=== PATIENT | female | born 1990 | race Caucasian/White ===

== ENCOUNTER 2018-12-23 12:09 | Emergency (ER) | payer BC, OTHER ==
[2018-12-23 12:26] VITALS: BP 131/83
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
[2018-12-23] MEDS ORDERED: Acetaminophen/HYDROcodone 325-5 MG Tab PO ONE (13:35)
--- NOTE | 2018-12-24 08:46 | CT ---
CT cervical spine Technique: Multiple axial sections were obtained from above C1 inferiorly to the bottom of T2. Reconstructed sagittal and coronal images were obtained. Comparison: No prior cervical spine imaging is available. Findings: Vertebral body heights and disc spaces are maintained. No bony central or bony neural foraminal stenosis is seen. Very slight degenerative change is seen within the apophyseal joint at T1-T2 on the right side. No other degenerative change is seen. No fracture or subluxation is seen. No bony central or bony neural foraminal stenosis is seen. Impression: 1. Minimal degenerative change. 2. Nothing acute is appreciated on CT study of the cervical spine. Diagnostic code #2 I agree with preliminary report from [facility], finalized on 12/23/18, 2:33 PM Central Time
== END 2018-12-23 13:54 | disposition home or self-care (01) ==
LOC: JD.ED 12:09
DX: S16.1XXA Strain of muscle, fascia and tendon at neck level, initial encounter (principal); V49.60XA Unspecified car occupant injured in collision with unspecified motor vehicles in traffic accident, initial encounter
CPT/HCPCS: 72125; 99284; A9270; 99283

== ENCOUNTER 2020-08-02 08:23 | Emergency (ER) | payer MEDICAID ==
--- NOTE | 2020-08-02 08:51 | EDM.PDOC ---
ED HPI GENERAL MEDICAL PROBLEM - General Chief Complaint: Skin Complaint Stated Complaint: SPIDER BITE Time Seen by Provider: 08/02/20 08:35 Source of Information: Reports: Patient History Limitations: Reports: No Limitations - History of Present Illness INITIAL COMMENTS - FREE TEXT/NARRATIVE: The patient presents with a lesion to her right hip. She says this has been there for about 3 months but it opened up the other day and has been draining. She also says now she feels fatigued and had pain shooting down her leg and into her pelvis. She has no fever or chills. She has never had MRSA before. 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 Denies: Fever, Chills HEENT: Reports: No Symptoms Respiratory: Reports: No Symptoms Cardiovascular: Reports: No Symptoms Endocrine: Reports: No Symptoms GI/Abdominal: Reports: No Symptoms : Reports: Other (Pelvic pain) Musculoskeletal: Reports: Other (Right leg pain and right hip pain) ED EXAM, SKIN/RASH Exam: See Below Exam Limited By: No Limitations General Appearance: Alert, No Apparent Distress Ears: Normal External Exam Nose: Normal Inspection Head: Atraumatic, Normocephalic Neck: Normal Inspection Respiratory/Chest: No Respiratory Distress Extremities: Other (Right hip has an open abscess with erythema around it and mild bloody drainage) Course - Vital Signs Last Recorded V/S: Last Vital Signs Temp 97.5 F 08/02/20 08:29 Pulse 81 08/02/20 08:29 Resp 19 08/02/20 08:29 BP 135/90 08/02/20 08:29 Pulse Ox 100 08/02/20 08:29 - Re-Assessments/Exams Free Text/Narrative Re-Assessment/Exam: 08/02/20 08:48 I got aerobic and anaerobic culture and I will get her on doxycycline. Departure - Departure Time of Disposition: 08:50 Disposition: Home, Self-Care 01 Condition: Good Clinical Impression: Abscess - Discharge Information *PRESCRIPTION DRUG MONITORING PROGRAM REVIEWED*: Not Applicable *COPY OF PRESCRIPTION DRUG MONITORING REPORT IN PATIENT NICOL[place]S: Not Applicable Prescriptions: Doxycycline [Vibra-Tabs] 100 mg PO Q12HR #20 tab Referrals: Joyce Baxter, AVIAN KEEPER [Primary Care Provider] - 1 Week Additional Instructions: Clean the wound with warm soapy water 2 times per dy and apply antibiotic ointment after. Put warm compresses on the wound 3 times per day for 1 week. Follow up with your doctor within a week. Please return if you are worse. Sepsis Event Note (ED) - Evaluation Sepsis Screening Result: No Definite Risk - Focused Exam Vital Signs: Vital Signs Temp Pulse Resp BP Pulse Ox 08/02/20 08:29 97.5 F 81 19 135/90 100
[2020-08-02 10:29] VITALS: BP 119/78; PULSE 87
== END 2020-08-02 09:03 | disposition home or self-care (01) ==
LOC: JD.ED 08:23
DX: L02.415 Cutaneous abscess of right lower limb (principal); F17.210 Nicotine dependence, cigarettes, uncomplicated
CPT/HCPCS: 87075; 87205; 99283

== ENCOUNTER 2020-11-05 22:40 | Emergency (ER) | payer MEDICAID ==
[2020-11-05 22:46] VITALS: BP 142/90; PULSE 131
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
== END 2020-11-05 22:52 ==
LOC: JD.ED 22:40
DX: F10.129 Alcohol abuse with intoxication, unspecified (principal); R00.0 Tachycardia, unspecified
CPT/HCPCS: 99283; 99284